=== PATIENT | male | born 1965 | race Caucasian/White ===

== ENCOUNTER → 2019-01-20 10:00 | Outpatient (CLI) | payer MEDICARE, MEDICAID, SELFPAY ==
--- NOTE | 2019-01-20 10:06 | XR_ITS ---
XR shoulder RT min 2V HISTORY: Follow-up scapular fracture ITS.REASON: scapula fracture ORDERING PHYSICIAN: Amandeep Romero MD PATIENT AGE: 53 years Comparison: 01/04/2019 FINDINGS: Transverse scapular fracture once again noted just inferior to the glenohumeral joint and along the infrahilar aspect of the glenohumeral joint. There is some sclerosis of the fracture line consistent with healing. There are mild osteoarthritic changes of the glenohumeral joint. Fracture is also present through the lower aspect of the wing of the scapula with minimal anterior angulation of the distal fracture fragment without significant displacement. IMPRESSION: Healing scapular fracture with osteoarthritis of the glenohumeral joint
== END ==
PROVIDERS: Visit Provider Orthopaedic Surgery
DX: S42.101A Fracture of unspecified part of scapula, right shoulder, initial encounter for closed fracture (principal); M81.0 Age-related osteoporosis without current pathological fracture
CPT/HCPCS: 73030

== ENCOUNTER → 2019-01-26 09:53 | Outpatient (CLI) | payer MEDICARE, MEDICAID, SELFPAY ==
--- NOTE | 2019-01-26 09:55 | XR_ITS ---
XR DEXA axial skeleton HISTORY: ITS.REASON: evaluate for osteoporosis ORDERING PHYSICIAN: Amandeep Romero MD PATIENT AGE: 53 years COMPARISON: None FINDINGS: The BMD measured at the AP Spine L1-L4 is 0.824 g/cm squared with a T score of -3.3. This is considered markedly low according . Fracture risk is High. Treatment is advised. The mean hip density has a T score of -3 which is markedly low. IMPRESSION: Markedly low bone density with high fracture risk. Treatment is advised.
== END ==
PROVIDERS: Visit Provider Orthopaedic Surgery
DX: M81.0 Age-related osteoporosis without current pathological fracture (principal)
CPT/HCPCS: 77080

== ENCOUNTER → 2019-02-10 09:58 | Outpatient (CLI) | payer MEDICARE, SELFPAY ==
--- NOTE | 2019-02-10 10:06 | XR_ITS ---
XR shoulder RT min 2V HISTORY: Follow-up fracture, pain following injury ITS.REASON: regular views ORDERING PHYSICIAN: Amandeep Romero MD PATIENT AGE: 53 years Comparison: 01/20/2019 FINDINGS: Nondisplaced scapular fracture once again noted in the infra ethmoid region and along the inferior aspect of the scapular wing. There is some increasing sclerosis at the fracture site consistent with healing. Osteoarthritic changes are present at the glenohumeral joint. IMPRESSION: Healing nondisplaced scapular fractures
== END ==
PROVIDERS: Visit Provider Orthopaedic Surgery
DX: S42.101A Fracture of unspecified part of scapula, right shoulder, initial encounter for closed fracture (principal)
CPT/HCPCS: 73030

== ENCOUNTER → 2020-06-22 10:53 | Outpatient (POV) | payer MEDICARE, SELFPAY | PROVIDERS: Visit Provider Audiologist | DX: Z00.00 Encounter for general adult medical examination without abnormal findings (principal) ==

== ENCOUNTER 2021-03-23 08:45 | Emergency (ER) | payer MEDICARE, SELFPAY ==
[2021-03-23 08:46] VITALS: BP 140/104; PULSE 99; RESP 20; TEMP 36.8; O2SAT 95; BMI 23.7
--- NOTE | 2021-03-23 08:46 | CT_ITS ---
PROCEDURE: CT HEAD/BRAIN WO CON CLINICAL INDICATION: Stroke symptoms COMPARISON: No exams were available for comparison TECHNIQUE: Axial images obtained. All CT scans at the facility use one or more dose reduction, viz: automated exposure control, ma/kV adjustment per patient size (including targeted exams where dose is matched to indication, i.e. head), or iterative reconstruction technique. FINDINGS: Hyperdensity noted within the left basal ganglia measuring 2 cm consistent with an acute intraparenchymal hemorrhage. There is also intraventricular hemorrhage with blood in the left lateral ventricle, 3rd ventricle, and 4th ventricle. There is minimal midline shift toward the right of approximately 3 mm. This shift is only at the level of the intraventricular and basal ganglia hemorrhage. No hydrocephalus. No acute bony findings. No mastoid effusion or sinus air-fluid level. IMPRESSION: 1. Acute left basal ganglia hemorrhage and intraventricular hemorrhage of the left lateral ventricle 3rd ventricle and 4th ventricle. Hypertensive hemorrhage of the basal ganglia with extension into the ventricles suspected. 2. Minimal midline shift to the right. 3. No hydrocephalus. Dictated by: Rod Mccabe MD 03/23/2021 09:02 Rod Mccabe MD in [facility] 03/23/2021 09:02
--- NOTE | 2021-03-23 08:54 | XR_ITS ---
PROCEDURE: XR CHEST PORTABLE CLINICAL HISTORY: stroke COMPARISON: No exams were available for comparison FINDINGS: The cardiomediastinal silhouette and pulmonary vascularity are within normal limits. Patchy density is present in the right lower lobe medially and may only be due to summation density from overlying vascular structures. Cannot exclude a small area of infiltrate. The remaining lungs are clear. No acute bony abnormalities. IMPRESSION: Increased markings right lung base medially which may be due to summation artifact, atelectasis or infiltrate. Dictated by: Rod Mccabe MD 03/23/2021 09:26 Rod Mccabe MD in [facility] 03/23/2021 09:26
--- NOTE | 2021-03-23 08:54 | PC.NURSE ---
Pt returned from rad.
[2021-03-23 08:55] VITALS: BMI 23.7
--- NOTE | 2021-03-23 09:00 | PC.NURSE ---
Dr Mccabe speaking with Dr Ballesteros at this time.
--- NOTE | 2021-03-23 09:02 | HMH.EDGENADL ---
ED Disposition Clinical Impression: Intracranial hemorrhage Disposition: Xfer Short-Term Hosp Condition on Discharge: Serious Referrals: Provider,Referral, [Primary Care Provider] - Forms: Transfer Record - ED - Critical Care Critical Care Time: No Attestation: On 03/23/21, the high probability of a clinically significant, sudden or life threatening deterioration of the following system(s) required my full and direct attention, intervention and personal management. The time I documented below is in addition to time spent performing reported procedures but includes the following listed in this critical care notation. Medical Decision Making - Sreekanth Inquiry Pt receiving controlled substance: No Vital Signs: 03/23/21 08:46 03/23/21 09:05 03/23/21 09:08 Temperature 98.2 F Temperature Source Oral Pulse Rate 93 H Pulse Rate [Apical] 99 H Respiratory Rate 20 Blood Pressure 174/98 H 152/88 H Blood Pressure [Right Arm] 140/104 H Blood Pressure Mean [Right Arm] 116 Blood Pressure Source Automatic Cuff Manual Cuff/ Auscultation Blood Pressure Source [Right Arm] Automatic Cuff Blood Pressure Position Sitting Blood Pressure Position [Right Arm] Sitting 02 Sat by Pulse Oximetry 95 94 L Oxygen Delivery Method Room Air Room Air 03/23/21 09:26 Temperature 98.2 F Temperature Source Pulse Rate 103 H Pulse Rate [Apical] Respiratory Rate 18 Blood Pressure 174/98 H Blood Pressure [Right Arm] Blood Pressure Mean [Right Arm] Blood Pressure Source Automatic Cuff Blood Pressure Source [Right Arm] Blood Pressure Position Sitting Blood Pressure Position [Right Arm] 02 Sat by Pulse Oximetry Oxygen Delivery Method Room Air - Lab Data Lab Results 03/23/21 09:02: WBC 4.6 L, RBC 4.85, Hgb 16.6, Hct 51.7, MCV 106.6 H, MCH 34.4 H, MCHC 32.2, RDW 12.9, Plt Count 74 L, MPV 8.1, Neut % (Auto) 60.1, Lymph % (Auto) 28.4, Hughes % (Auto) 8.1, Eos % (Auto) 2.0, Baso % (Auto) 1.4, Neut # (Auto) 2.8, Lymph # (Auto) 1.3, Hughes # (Auto) 0.4, Eos # (Auto) 0.1, Baso # (Auto) 0.1 09/10/21 09:02: PT 12.4, INR 1.06, APTT 27.7 03/23/21 09:02: Sodium 138, Potassium 4.9, Chloride 105, Carbon Dioxide 26, Anion Gap 11.9, BUN 12, Creatinine 0.60 L, Estimated Creat Clear 157, Estimated GFR 139, Est GFR ( Amer) 168, Glucose 133 H, Calcium 8.7, Total Bilirubin 1.6 H, AST 114 H, ALT 80 H, Alkaline Phosphatase 260 H, Total Protein 8.2, Albumin 3.8, Globulin 4.4 H, Albumin/Globulin Ratio 0.9 L Result diagrams: 03/23/21 09:02 03/23/21 09:02 - CT Data CT Scan: Head Time Received: 09:[address] Reviewed: Yes: I discussed the CT results w/the radiologist Findings Narrative: 2 cm hemorrhage left basal ganglia with extension into ventricles, most likely hypertensive bleed. Minimal 3 mm shift of midline. - ECG Data Tracing #1 EKG interpreted by Reji Ballesteros MD: Rhythm: sinus Rate: 93 [place]: normal Ectopy: none Conduction: normal ST Segment Changes: none T Wave Changes: none Q Waves: none No evidence of acute ischemia or injury - Physician Consults Physician Consulted: Cj NIELSON neurosurgery Time: 09:07 General Adult HPI - General Stated complaint: Possible Stroke Time Seen by Provider: 03/23/21 08:55 - History of Present Illness HPI narrative: Brought in by ambulance and taken directly to CT scan. Patient states that he awakened with right-sided weakness. Unable to walk. When he tried to walk this morning he fell. Denies injury. Denies any other symptoms including headache. Denies visual disturbance. No previous similar symptoms. No recent fall or trauma. He is on no blood thinners. He is a non-smoker. He admits to drinking more than 6 beers per day. He does not have a primary care doctor and is on no prescription medications. - Related Data Home Medications Medication Instructions Recorded Confirmed No Known Home Medications 02/10/19 02/10/19 Allergies Allergy/Ad
--- NOTE | 2021-03-23 09:03 | ECG_ITS ---
APPROVED REPORT Exam: Resting ECG HR:93 bpm ECG Measurements Heart Rate [address] 150 P 46 QRSd 88 QRS 12 QT 376 T 35 QTc 467 Conclusion Normal sinus rhythm Normal ECG Electronically signed by : Vickey Alvarenga MD 03/25/2021 16:11:19
--- NOTE | 2021-03-23 09:04 | PC.NURSE ---
calling [facility] at this time.
[2021-03-23 09:05] VITALS: BP 174/98; PULSE 93; O2SAT 94
--- NOTE | 2021-03-23 09:06 | PC.NURSE ---
Rad at bedside
--- NOTE | 2021-03-23 09:07 | PC.NURSE ---
Dr Ballesteros speaking with Dr Weinberg at
[2021-03-23 09:08] VITALS: BP 152/88
--- NOTE | 2021-03-23 09:08 | PC.NURSE ---
Dr Weinberg accepts pt.
[2021-03-23 09:15] LABS: Basophils # 0.1 K/mm3 (0-0.2); Basophils % 1.4 % (0.1-2.0); Eosinophils # 0.1 K/mm3 (0.0-0.4); Hematocrit 51.7 % (42.0-52.0); Hemoglobin 16.6 g/dL (14.1-18.0); Lymphocytes # 1.3 K/mm3 (0.7-4.5); Lymphocytes % 28.4 % (10-50); Mean Corpuscular HGB Conc 32.2 g/dL (31.8-35.4); Mean Corpuscular Hemoglobin 34.4 pg (27.0-31.2); Mean Corpuscular Volume 106.6 fl (80-94); Mean Platelet Volume 8.1 fl (7.4-10.4); Monocytes # 0.4 K/mm3 (0.1-1.0); Monocytes % 8.1 % (1.7-9.3); Neutrophils # 2.8 K/mm3 (1.8-7.8); Neutrophils % 60.1 % (37.0-80.0); Platelet Count 74 K/mm3 (142-424); Red Blood Count 4.85 M/mm3 (4.60-6.20); Red Cell Distribution Width 12.9 % (11.5-17.5); White Blood Count 4.6 K/mm3 (4.8-10.8)
--- NOTE | 2021-03-23 09:19 | PC.NURSE ---
report called to ER Anay AbrahamRN
[2021-03-23 09:21] LABS: Alanine Aminotransferase 80 U/L (12-78); Albumin Level 3.8 g/dl (3.5-5.0); Albumin/Globulin Ratio 0.9 (1.1-1.8); Alkaline Phosphatase 260 U/L (38-126); Anion Gap 11.9 mEq/L (5-15); Aspartate Amino Transferase 114 U/L (17-59); Bilirubin,Total 1.6 mg/dl (0.2-1.3); Blood Urea Nitrogen 12 mg/dl (9-20); Calcium 8.7 mg/dl (8.4-10.2); Carbon Dioxide 26 mmol/L (22.0-30.0); Chloride 105 mmol/L (98-107); Creatinine Clearance Estimated 157 mL/min (50-200); Estimated Glomerular Filt Rate 139 ml/min (>60); GFR (African American) 168 ML/MIN (>60); Globulin 4.4 g/dL (1.3-3.2); Glucose 133 mg/dl (74-100); Potassium 4.9 mmoL/L (3.5-5.1); Sodium 138 mmol/L (136-145); Total Protein,Serum 8.2 g/dl (6.3-8.2)
[2021-03-23 09:25] LABS: Activated Partial Thrombo Time 27.7 seconds (22.8-30.6); Prothrombin Time 12.4 seconds (10.1-12.5)
[2021-03-23 09:26] VITALS: BP 174/98; PULSE 103; RESP 18; TEMP 36.8; O2SAT 95
[2021-03-23 09:27] LABS: INR 1.06 (0.9-1.1)
== END 2021-03-23 09:26 | disposition short-term general hospital (02) ==
PROVIDERS: Emergency Provider Emergency Medicine
DX: I62.9 Nontraumatic intracranial hemorrhage, unspecified (principal); F10.10 Alcohol abuse, uncomplicated; Z88.2 Allergy status to sulfonamides; Z87.891 Personal history of nicotine dependence
CPT/HCPCS: 70450; 71045; 80053; 85025; 85610; 85730; 93005; 99284

== ENCOUNTER 2021-07-20 16:51 | Emergency (ER) | payer MEDICARE, SELFPAY ==
[2021-07-20 16:55] VITALS: BP 141/82; PULSE 84; RESP 19; TEMP 36.6; O2SAT 98; BMI 23.7
[2021-07-20 17:03] VITALS: BP 141/82; PULSE 84; RESP 19; TEMP 36.6; O2SAT 98
--- NOTE | 2021-07-20 17:04 | HMH.EDUTC ---
[facility] [place] Disposition Clinical Impression: Foreign body in ear Qualifiers: Encounter type: initial encounter Laterality: right Qualified Code(s): T16.1XXA - Foreign body in right ear, initial encounter Disposition: Home, Self-Care Condition on Discharge: Good Instructions: DI for Removal of Foreign Body From Ear Additional Instructions: Over the counter Motrin and/or Tylenol may help with pain Return if needed Follow up with your Family Doctor if no improvement or any worsening of symptoms Follow up with Ears Nose and Throat if needed Straight to ER if any life threatening symptoms Prescriptions: Neomyc/Colist/Hydrocort/Thonzn [Cortisporin-Tc Ear Suspension] 4 drops EAR-RIGHT TID 7 Days #10 ml Transmission Status: Received by [id number] Referrals: Marlon Ledesma MD [Primary Care Provider] - As needed Ears Nose and Throat [Other] - 07/25/21 12:30 pm Time of Disposition: 17:21 Medical Decision Making - Sreekanth Inquiry Pt receiving controlled substance: No Sreekanth was queried for this patient: No Vital Signs: 07/20/21 16:55 07/20/21 17:03 Temperature 97.8 F 97.8 F Temperature Source Oral Pulse Rate 84 Pulse Rate [Right Brachial] 84 Respiratory Rate 19 19 Blood Pressure 141/82 H Blood Pressure [Right Arm] 141/82 H Blood Pressure Mean [Right Arm] 101 Blood Pressure Source [Right Arm] Automatic Cuff Blood Pressure Position [Right Arm] Sitting 02 Sat by Pulse Oximetry 98 - Physician Consults Physician Consulted: ENT Time: 17:18 Reason -: ENT Eval/Care Comment/Response: Spoke with Suzanna Ames with ENT and informed her of patient and removal of object with suspected abrasions to ear canal from previous attempts of removal prior to arrival She advised to have patient follow up in the office on Fri for reevaluation to see if any infection or pain persists will start on Cortisoprin ear drops TID and have him follow up as scheduled [facility] [place] HPI - General Stated complaint: object in R ear Time Seen by Provider: 07/20/21 17:04 Mode of Arrival: Ambulatory Source of Information: Patient Limitations: No Limitations Description of Symptoms (Recalled from Triage Doc. by RN): PATIENT C/O RUBBER TIP OF HEARING AID IN RIGHT EAR HEENT Symptoms (Recalled from RN notes): Yes Resp Symptoms (Recalled from RN notes): No Skin Symptoms (Recalled from RN notes): No MS Symptoms (Recalled from RN notes): No Functional Status (Recalled from RN notes): WNL - History of Present Illness Provider Complaint: Patient state that the cone like rubber piece on the end of his hearing aids came off inside his right ear State that he tried to get it out last night and couldnt and family tried to get it out earlier today with tweezers but was unable too and has his ear a little sore States that since he was still unable to get it out he came in to see if he could get it removed - Related Data Previous Rx's Medication Instructions Recorded Neomyc/Colist/Hydrocort/Thonzn 4 drops EAR-RIGHT TID 7 Days #10 ml 07/20/21 [Cortisporin-Tc Ear Suspension] Allergies Allergy/AdvReac Type Severity Reaction Status Date / Time Sulfa (Sulfonamide Allergy Verified 02/10/19 10:19 Antibiotics) - Worker's Comp Is this a Worker's Comp case?: No [facility] History - Hepatitis A Screen Drug use history?: No High risk sexual behaviors?: No History of sexually transmitted infection?: No Currently employed?: No Childcare worker?: No Do you have indoor plumbing?: Yes Do you have electricity?: Yes Attestation statement:: This patient has been screened for Hepatitis A risk factors. I have reviewed the patient's past medical history: Yes - Social History Smoking Status: Former smoker Alcohol Intake: current Alcohol Intake Frequency:: 3 or more drinks per day Occupational Status: other Family Hx:: No significant family history ROS Obtained: Yes All systems reviewed & no additional complaints, Yes Systems reviewed as appropriate & no
== END 2021-07-20 17:28 | disposition home or self-care (01) ==
PROVIDERS: Emergency Provider Nurse Practitioner; PCP Internal Medicine Adolescent Medicine
DX: T16.1XXA Foreign body in right ear, initial encounter (principal); Z87.891 Personal history of nicotine dependence
CPT/HCPCS: 69200; G0463; 99202

== ENCOUNTER → 2022-01-10 17:21 | Outpatient (CLI) | payer MEDICARE, SELFPAY ==
[2022-01-10 18:20] LABS: INR 1.16 (0.9-1.1)
[2022-01-10 18:24] LABS: Basophils # 0.1 K/mm3 (0-0.2); Basophils % 1.4 % (0.1-2.0); Eosinophils # 0.3 K/mm3 (0.0-0.4); Eosinophils % 5.4 % (0.1-12.0); Hematocrit 44.4 % (42.0-52.0); Hemoglobin 15.1 g/dL (14.1-18.0); Lymphocytes # 2.3 K/mm3 (0.7-4.5); Lymphocytes % 47.4 % (10-50); Mean Corpuscular HGB Conc 34.1 g/dL (31.8-35.4); Mean Corpuscular Hemoglobin 35.2 pg (27.0-31.2); Mean Corpuscular Volume 103.1 fl (80-94); Mean Platelet Volume 8.2 fl (7.4-10.4); Monocytes # 0.4 K/mm3 (0.1-1.0); Monocytes % 8.6 % (1.7-9.3); Neutrophils # 1.8 K/mm3 (1.8-7.8); Neutrophils % 37.3 % (37.0-80.0); Platelet Count 85 K/mm3 (142-424); Red Blood Count 4.31 M/mm3 (4.60-6.20); Red Cell Distribution Width 12.6 % (11.5-17.5); White Blood Count 4.9 K/mm3 (4.8-10.8)
[2022-01-10 18:25] LABS: Chloride 106 mmol/L (98-107); Sodium 136 mmol/L (136-145)
[2022-01-10 18:26] LABS: Potassium 3.7 mmoL/L (3.5-5.1)
[2022-01-10 18:28] LABS: Alanine Aminotransferase 50 U/L (12-78); Albumin Level 3.3 g/dl (3.5-5.0); Alkaline Phosphatase 230 U/L (38-126); Anion Gap 8.7 mEq/L (5-15); Aspartate Amino Transferase 70 U/L (17-59); Bilirubin,Total 2.2 mg/dl (0.2-1.3); Blood Urea Nitrogen 12 mg/dl (9-20); Carbon Dioxide 25 mmol/L (22.0-30.0); Estimated Glomerular Filt Rate 138 ml/min (>60); GFR (African American) 167 ML/MIN (>60); Globulin 3.2 g/dL (1.3-3.2); Total Protein,Serum 6.5 g/dl (6.3-8.2)
[2022-01-10 18:29] LABS: Calcium 8.6 mg/dl (8.4-10.2); Glucose 143 mg/dl (74-100)
== END ==
PROVIDERS: PCP Internal Medicine Adolescent Medicine; Visit Provider Nurse Practitioner Acute Care
DX: K70.30 Alcoholic cirrhosis of liver without ascites (principal)
CPT/HCPCS: 36415; 80053; 85025; 85610

== ENCOUNTER → 2022-05-17 11:51 | Outpatient (CLI) | payer MEDICARE, SELFPAY ==
[2022-05-17 12:26] LABS: Hematocrit 44.8 % (42.0-52.0); Hemoglobin 14.1 g/dL (14.1-18.0); Mean Corpuscular HGB Conc 31.4 g/dL (31.8-35.4); Mean Corpuscular Hemoglobin 33.9 pg (27.0-31.2); Mean Corpuscular Volume 107.9 fl (80-94); Platelet Count 77 K/mm3 (142-424); Red Blood Count 4.15 M/mm3 (4.60-6.20); Red Cell Distribution Width 14.1 % (11.5-17.5); White Blood Count 4.8 K/mm3 (4.8-10.8)
[2022-05-17 13:01] LABS: Alanine Aminotransferase 29 U/L (12-78); Albumin Level 3.4 g/dl (3.5-5.0); Albumin/Globulin Ratio 1.1 (1.1-1.8); Alkaline Phosphatase 445 U/L (38-126); Anion Gap 13.1 mEq/L (5-15); Aspartate Amino Transferase 45 U/L (17-59); Blood Urea Nitrogen 10 mg/dl (9-20); Calcium 8.8 mg/dl (8.4-10.2); Carbon Dioxide 27 mmol/L (22.0-30.0); Chloride 105 mmol/L (98-107); Estimated Glomerular Filt Rate 138 ml/min (>60); GFR (African American) 167 ML/MIN (>60); Globulin 3.2 g/dL (1.3-3.2); Glucose 118 mg/dl (74-100); Potassium 4.1 mmoL/L (3.5-5.1); Sodium 141 mmol/L (136-145); Total Protein,Serum 6.6 g/dl (6.3-8.2)
[2022-05-18 08:16] LABS: AFP, Tumor Marker 7.1 ng/mL (0.0-8.4)
== END ==
PROVIDERS: PCP Internal Medicine Adolescent Medicine; Visit Provider Nurse Practitioner Acute Care
DX: K70.30 Alcoholic cirrhosis of liver without ascites (principal); B18.2 Chronic viral hepatitis C
CPT/HCPCS: 36415; 80053; 82105; 85014; 85018; 85048; 85049; 87522

== ENCOUNTER → 2022-05-22 13:09 | Outpatient (CLI) | payer MEDICARE, SELFPAY ==
[2022-05-22 14:24] LABS: INR 1.24 (0.9-1.1); Prothrombin Time 13.2 seconds (10.1-12.5)
[2022-05-22 14:42] LABS: Chloride 104 mmol/L (98-107)
[2022-05-22 14:43] LABS: Potassium 3.7 mmoL/L (3.5-5.1); Sodium 140 mmol/L (136-145)
[2022-05-22 14:45] LABS: Alanine Aminotransferase 25 U/L (12-78); Alkaline Phosphatase 346 U/L (38-126); Anion Gap 10.7 mEq/L (5-15); Aspartate Amino Transferase 41 U/L (17-59); Bilirubin,Total 1.4 mg/dl (0.2-1.3); Blood Urea Nitrogen 9 mg/dl (9-20); Carbon Dioxide 29 mmol/L (22.0-30.0); Estimated Glomerular Filt Rate 138 ml/min (>60); GFR (African American) 167 ML/MIN (>60)
[2022-05-22 14:46] LABS: Albumin Level 3.3 g/dl (3.5-5.0); Albumin/Globulin Ratio 1.1 (1.1-1.8); Calcium 8.9 mg/dl (8.4-10.2); Gamma Glutamyl Transpeptidase 24 U/L (15-73); Globulin 3.1 g/dL (1.3-3.2); Glucose 107 mg/dl (74-100); Iron 182 ug/dL (49-181); Total Protein,Serum 6.4 g/dl (6.3-8.2)
[2022-05-22 14:55] LABS: Total Iron Binding Capacity 282 ug/dL (261-462)
[2022-05-22 15:20] LABS: Ferritin 536 ng/ml (17.9-464)
[2022-05-22 15:41] LABS: Hematocrit 46.9 % (42.0-52.0); Hemoglobin 14.6 g/dL (14.1-18.0); Mean Corpuscular HGB Conc 31.2 g/dL (31.8-35.4); Mean Corpuscular Hemoglobin 33.9 pg (27.0-31.2); Mean Corpuscular Volume 108.7 fl (80-94); Platelet Count 81 K/mm3 (142-424); Red Blood Count 4.31 M/mm3 (4.60-6.20); Red Cell Distribution Width 14.3 % (11.5-17.5); White Blood Count 5.2 K/mm3 (4.8-10.8)
[2022-05-24 08:18] LABS: Alpha-1-Antitrypsin 125 mg/dL (101-187); Ceruloplasmin 15.2 mg/dL (16.0-31.0); Immunoglobulin A, Qn 250 mg/dL (90-386); Immunoglobulin G, Qn 1829 mg/dL (603-1613); Immunoglobulin M, Qn 117 mg/dL (20-172); Transferrin 211 mg/dL (177-329)
[2022-05-24 12:38] LABS: Liver-Kidney Microsomal Ab 3.1 Units (0.0-20.0)
[2022-05-24 14:11] LABS: Actin (Smooth Muscle) Antibody 10 Units (0-19); Mitochondrial (M2) Antibody <20.0 Units (0.0-20.0); Tissue Transglutaminase IgA Ab <2 U/mL (0-3)
[2022-05-27 13:56] LABS: Alkaline Phosphatase 281 IU/L (44-121); Bone Fraction: 39 % (12-68); Intestinal Frac.: 54 % (0-18); Liver Fraction: 7 % (13-88)
[2022-05-30 19:09] LABS: Immunoglobulin E, Total 86 IU/mL (6-495)
[2022-06-15 23:16] LABS: Antinuclear Antibodies, IFA Positive
== END ==
PROVIDERS: PCP Internal Medicine Adolescent Medicine; Visit Provider Nurse Practitioner Acute Care
DX: K70.30 Alcoholic cirrhosis of liver without ascites (principal); R74.8 Abnormal levels of other serum enzymes; Z12.11 Encounter for screening for malignant neoplasm of colon
CPT/HCPCS: 36415; 80053; 82103; 82390; 82565; 82728; 82784; 82785; 82977; 83516; 83540; 83550; 84075; 84080; 84466; 85014; 85018; 85048; 85049; 85610; 86038; 86255; 86256; 86376

== ENCOUNTER → 2022-06-10 08:02 | Outpatient (CLI) | payer MEDICARE, SELFPAY ==
--- NOTE | 2022-06-10 08:07 | MR_ITS ---
FINAL REPORT CLINICAL HISTORY: ALCOHOLIC CIRRHOSIS OF LIVER WITHOUT ASCITES. HISTORY HEPATITIS. 18ML PROHANCE GIVEN. FINDINGS: Multiplanar MR imaging of the abdomen was performed without and with contrast. Mild heterogeneous enhancement of the liver likely reflective of underlying parenchymal disease. No evidence of up attic mass. No changes of cirrhosis. Mild edema within the beatrice vascular triads with mild narrowing of some of the central hepatic biliary tree. Underlying sclerosing cholangitis cannot be excluded. Portal and hepatic veins are patent. Gallbladder is unremarkable. Borderline splenomegaly. Small upper pole left renal cyst. Remaining abdominal organs unremarkable. No adenopathy or ascites. IMPRESSION: No changes of cirrhosis or primary hepatic tumor. Abnormal appearance of the hepatic parenchyma may reflect hepatitis. Abnormal appearance of the biliary tree. Underlying sclerosing cholangitis not excluded. Consider follow-up ERCP. Borderline splenomegaly. Reviewed, Interpreted and Dictated by Charisse Cheney MD Transcribed by José Miguel Major Authenticated and [facility]
== END ==
LOC: RAD 08:02
PROVIDERS: PCP Internal Medicine Adolescent Medicine; Visit Provider Nurse Practitioner Acute Care
DX: K70.30 Alcoholic cirrhosis of liver without ascites (principal); R74.8 Abnormal levels of other serum enzymes
CPT/HCPCS: 74183; 76376; A9576